=== PATIENT | female | born 1975 | race African-American/Black ===

== ENCOUNTER 2019-07-08 06:49 | Emergency (ER) | payer SELFPAY ==
[2019-07-08] MEDS ORDERED: Baclofen 10 MG Tab PO ONE (07:24)
--- NOTE | 2019-07-08 07:32 | EDM.PDOC ---
ED HPI GENERAL MEDICAL PROBLEM - General Chief Complaint: Neurological Problem Stated Complaint: RIGHT SIDE OF FACE SWOLLEN Time Seen by Provider: 07/08/19 07:10 Source of Information: Reports: Patient History Limitations: Reports: No Limitations - History of Present Illness INITIAL COMMENTS - FREE TEXT/NARRATIVE: HISTORY OF PRESENT ILLNESS: Patient is a 44-year-old female with history of trigeminal neuralgia who complains of current flareup. States she had URI symptoms of nasal congestion on Wednesday which resolved on Wednesday. Since yesterday she has been having brief intermittent sharp shooting pains in trigeminal nerve distribution. She is on carbamazepine 200 mg twice daily. She also has a history of high blood pressure and has been out of her hydralazine since may and is requesting a refill. Denies any fevers or chills. No chest pain or dyspnea. No abdominal pain. No focal weakness. Denies any dental pain or infection. States it looks as though her right cheek is slightly more swollen than the left denies any tongue or lip swelling. Able to swallow. Denies any rash. REVIEW OF SYSTEMS: Other than the symptoms associated with the present events, the following is reported with regard to recent health: General: (-) fever. HENT: (+) congestion earlier this week, now resolved. Respiratory: (-) cough. Cardiovascular: (-) chest pain. GI: (-) abdominal pain. : (-) urinary complaints. Musculoskeletal: (-) other aches or pains. Endocrine: (-) generalized weakness. Neurological: (-) localized weakness. Skin: (-) rash PAST MEDICAL HISTORY: reviewed as per nursing notes SOCIAL HISTORY: reviewed as per nursing notes, MEDICATIONS: Per nurse's note ALLERGIES: Per nurse's note, reviewed by me PHYSICAL EXAMINATION: GENERALIZED APPEARANCE: well developed, well nourished in mild distress during episodes of pain. VITAL SIGNS: Per nurse's note, reviewed by me SKIN: Warm, dry; (-) cyanosis; (-) rash. HEAD: (-) scalp swelling, (-) tenderness. no facial swelling noted. EYES: (-) conjunctival pallor, (-) scleral icterus. ENMT: (-) stridor; mucous membranes moist. no sinus tenderness. no dental tenderness to percussion. no gingival swelling or tenderness. NECK: (-) tenderness, (-) stiffness, no meningismus. CHEST AND RESPIRATORY: (-) rales, (-) rhonchi, (-) wheezes; breath sounds equal bilaterally. HEART AND CARDIOVASCULAR: (-) irregularity; (-) murmur, (-) gallop. ABDOMEN AND GI: Soft; (-) tenderness, (-) guarding, (-) rebound, (-) palpable masses, EXTREMITIES: (-) deformity, (-) edema. NEURO AND PSYCH: Alert. Cranial nerves grossly intact; strength symmetric. gait steady. normal speech EMERGENCY DEPARTMENT COURSE AND TREATMENT: Patient's condition remained stable during Emergency Department evaluation. Given Baclofen here, pt with pain relief. Will refill Hydralazine. Must f/u with pcp on Wednesday and may need to have carbamazepine dose increased, but pcp will need to follow WBC. Pt NVI with no evidence of facial swelling on my examination or airway compromise. Given discharge precautions. PLAN AND FOLLOW-UP: Patient received written and verbal instructions regarding this condition. Return to ED immediately with any new or worsening symptoms. Follow up to be arranged by patient with pcp in 1-2 days for further evaluation. Given discharge precautions. patient expressed verbal understanding. Right Face/Facial Pain Score (Numeric/FACES): 10 - Related Data Allergies Allergy/AdvReac Type Severity Reaction Status Date / Time No Known Allergies Allergy Verified 07/08/19 07:02 Home Meds: Home Meds Carvedilol [Coreg] 25 mg PO BID 07/08/19 [History] Losartan/Hydrochlorothiazide [Losartan-HCTZ 100-25 MG] 1 tab PO DAILY 07/08/19 [ History] amLODIPine Besylate [Amlodipine Besylate] 10 mg PO DAILY 07/08/19 [History] carBAMazepine [Carbamazepine] 200 mg PO BID 07/08/19 [History] cloNIDine [Catapres] 0.1 mg PO DAILY 07/08/19 [History] hydrALAZINE [Apresoline] 10 mg PO Q8H 07/08/19 [History] hydrALAZINE [Apresoline] 10 mg PO Q8H #30 tab 07/08/19 [Rx] Past Medical History Cardiovascular History: Reports: Hypertension Neurological History: Reports: Other (See Below) Other Neuro History: trigemanl neuralgia - Infectious Disease History Infectious Disease History: Reports: Chicken Pox Social & Family History - Family History Family Medical History: Noncontributory - Tobacco Use Smoking Status *Q: Current Every Day Smoker Years of Tobacco use: 10 Packs/Tins Daily: 0.5 - Recreational Drug Use Recreational Drug Use: No ED ROS GENERAL - Review of Systems Review Of Systems: See Below (see dictation) ED EXAM, GENERAL - Physical Exam Exam: See Below (see dictation) Course - Vital Signs Last Recorded V/S: Last Vital Signs Temp 97.4 F 07/08/19 08:05 Pulse 80 07/08/19 08:05 Resp 16 07/08/19 08:05 BP 159/81 H 07/08/19 08:05 Pulse Ox 97 07/08/19 08:05 - Orders/Labs/Meds Meds: Medications Discontinued Medications Generic Name Dose Route Start Last Admin Trade Name Freq PRN Reason Stop Dose Admin Baclofen 10 mg 07/08/19 07:24 07/08/19 07:37 Lioresal PO 07/08/19 07:25 10 mg ONETIME ONE Administration Departure - Departure Time of Disposition: 07:57 Disposition: Home, Self-Care 01 Condition: Good Clinical Impression: Trigeminal neuralgia of right side of face, Hypertension - Discharge Information *PRESCRIPTION DRUG MONITORING PROGRAM REVIEWED*: Not Applicable *COPY OF PRESCRIPTION DRUG MONITORING REPORT IN PATIENT [facility]AURA: Not Applicable Prescriptions: hydrALAZINE [Apresoline] 10 mg PO Q8H #30 tab Instructions: Trigeminal Neuralgia, Hypertension Referrals: PCP,Not In Area [Primary Care Provider] - Jeffrey Rojas [Ordering Only Provider] - 2 Days Forms: ED Department Discharge Additional Instructions: The following information is given to patients seen in the emergency department who are being discharged to home. This information is to outline your options for follow-up care. We provide all patients seen in our emergency department with a follow-up referral. The need for follow-up, as well as the timing and circumstances, are variable depending upon the specifics of your emergency department visit. If you don't have a primary care physician on staff, we will provide you with a referral. We always advise you to contact your personal physician following an emergency department visit to inform them of the circumstance of the visit and for follow-up with them and/or the need for any referrals to a consulting specialist. The emergency department will also refer you to a specialist when appropriate. This referral assures that you have the opportunity for follow-up care with a specialist. All of these measure are taken in an effort to provide you with optimal care, which includes your follow-up. Under all circumstances we always encourage you to contact your private physician who remains a resource for coordinating your care. When calling for follow-up care, please make the office aware that this follow-up is from your recent emergency room visit. If for any reason you are refused follow-up, please contact the [facility] Emergency Department at and asked to speak to the emergency department charge nurse. Sepsis Event Note - Evaluation Sepsis Screening Result: No Definite Risk - Focused Exam Vital Signs: Vital Signs Temp Pulse Resp BP Pulse Ox 07/08/19 08:05 97.4 F 80 16 159/81 H 97 07/08/19 06:53 97.1 F 87 18 183/127 H 97 Date Exam was Performed: 07/08/19 Time Exam was Performed: 08:57
== END 2019-07-08 08:15 | disposition home or self-care (01) ==
LOC: MW.ED 06:49
DX: G50.0 Trigeminal neuralgia (principal); I10 Essential (primary) hypertension; F17.210 Nicotine dependence, cigarettes, uncomplicated; Z79.899 Other long term (current) drug therapy
CPT/HCPCS: 99283; A9270; 99282